=== PATIENT | female | born 1980 | race Caucasian/White ===

== ENCOUNTER 2025-05-07 12:34 | Outpatient (CLI) | payer BC, SELFPAY ==
--- OUTSIDE RECORDS SUMMARY | 2025-05-07 12:42 | XMS_ITS | Clinical Summary ---
Author Organization [facility] Address [address] [place] [address] Care Team Providers Care Public Health Training Assistant Name Role Phone Benson Jhaveri MD Primary Care Provider Allergies Active Allergy Reactions Criticality Noted Date Comments Amoxicillin Unknown 09/20/2017 Aspirin Stomach upset Low 09/20/2017 Sulfamethoxazole-Trimethop rim Unknown 09/20/2017 Tongue turned white and dried out Clavulanic Acid Unknown 09/20/2017 Ibuprofen Stomach upset Low 09/20/2017 Potassium Bicarb-Citric Acid Unknown 09/20/2017 Medications escitalopram (LEXAPRO) 20 mg tablet 06/25/2017 Active MEDROXYPROGESTER ONE 150 mg/mL injection 08/27/2017 Active omeprazole (PriLOSEC) 20 mg capsule 09/16/2017 Active predniSONE (DELTASONE) 10 mg tablet 06/14/2017 Active vit D3-vit T-gkminqpun-egqg [id number] kgtf-nhi-ka-mg tablet Take by mouth. Active Active Problems Problem Noted Date Diagnosed Date Morbid obesity with BMI of 40.0-44.9, adult 04/2018 Surgical History Surgery Date Site/Laterality Comments APPENDECTOMY Medical History Medical History Date Comments Gastric reflux Anxiety Depression IBS (irritable bowel syndrome) Family History Medical History Relation Name Comments Blood Clot Brother Alcohol abuse Neg Hx Arthritis Neg Hx Cancer Neg Hx Hypertension Neg Hx Lung disease Neg Hx Mental illness Neg Hx Relation Name Status Comments Brother Social History Tobacco Use Types Packs/Day Years Used Date Smoking Tobacco: Every Day Smokeless Tobacco: Current Alcohol Use Standard Drinks/Week Comments Yes 0 (1 standard drink = 0.6 oz pur e alcohol) Personal Safety Answer Date Recorded Getting School Help Needed Not on file 11/27 Comments Unknown Sex and Gender Information Value Date Recorded Sex Assigned at Not on file Legal Sex Female 9:50 AM DIRECTOR CHEMISTRY Gender Identity Not on file Sexual Orientation Not on file Obstetrics History Last Filed Vital Signs Vital Sign Reading Time Taken Comments Blood Pressure 154/75 09/20/2017 8:47 AM DIRECTOR CHEMISTRY Pulse 61 09/20/2017 8:47 AM DIRECTOR CHEMISTRY Temperature - - Respiratory Rate - - Oxygen Saturation - - Inhaled Oxygen Concentration - - Weight 115.7 kg (255 lb) 09/20/2017 8:47 AM DIRECTOR CHEMISTRY Height 167.6 cm (5' 6) 09/20/2017 8:47 AM DIRECTOR CHEMISTRY Body Mass Index 41.16 09/20/2017 8:47 AM DIRECTOR CHEMISTRY Plan of Treatment Not on file Insurance [employer] Care Teams Public Health Training Assistant Relationship Specialty Start Date End Date Benson Jhaveri MD PCP - General Family Medicine 09/10/17
--- OUTSIDE RECORDS SUMMARY | 2025-05-07 12:42 | XMS_ITS | Clinical Summary ---
Author Organization [facility] Address [address] [place] [address] Care Team Providers Care Director Of Federal Sales Name Role Phone Benson Jhaveri MD Primary Care Provider Allergies Active Allergy Reactions Criticality Noted Date Comments Amoxicillin Unknown 10/04/2018 Aspirin GI Upset Low 09/20/2017 Clavulanic Acid Unknown 10/04/2018 Ibuprofen GI Upset Low 09/20/2017 Penicillins Nausea and Vomiting Medium 10/04/2018 Potassium Bicarb-Citric Acid Unknown 09/20/2017 Potassium Bicarbonate Unknown 10/04/2018 Sulfamethoxazole-Trimet hoprim Unknown 09/20/2017 Tongue turned white and dried out Medications medroxyPROGESTE Michael injection Inject 1 mL (150 mg total) into the muscle every 3 (three) months. 4 09/21/2018 Active cetirizine 10 MG tablet Take 1 tablet (10 mg total) by mouth daily. 4 09/15/2018 Active escitalopram 20 MG tablet Take 1 tablet (20 mg total) by mouth daily. 09/15/2018 Active omeprazole 20 MG capsule Take 2 capsules (40 mg total) by mouth daily. 08/19/2018 Active acetaminophen 325 MG tablet Take 2 tablets (650 mg total) by mouth daily as needed. Active gabapentin (NEURONTIN) 600 MG tablet Take 1 tablet (600 mg total) by mouth 2 (two) times daily. 04/03/2024 Active HYDROcodone-kai taminophen (NORCO) 7.5-325 MG tablet Take 1 tablet by mouth. 05/11/2024 Active LORazepam (ATIVAN) 0.5 MG tablet Take 1 tablet (0.5 mg total) by mouth. Active Active Problems Problem Noted Date Diagnosed Date Bicipital tendinitis of right shoulder 1 Carpal tunnel syndrome on left 04/18/2019 Carpal tunnel syndrome on right 02/15/2019 Carbuncle of breast 10/04/2018 Overview (10/04/2018): Under right breast Hemorrhoid 10/04/2018 IBS (irritable bowel syndrome) 10/04/2018 Sleep apnea 10/04/2018 Anxiety and depression 10/04/2018 Obesity 10/04/2018 Allergic rhinitis 10/04/2018 Pilonidal cyst 10/04/2018 Perirectal abscess Anal fissure GERD (gastroesophageal reflux disease) Nicotine dependence, cigarettes, uncomplicated Family History Medical History Relation Comments COPD Father Cancer Father FH OF BREAST CAN CER Diabetes Father Hypertension Maternal Grandmother Cancer Mother FH OF COLON CANC ER Hypertension Mother OCD Mother Anxiety Sister Relation Status Comments Father Maternal Grandmother Mother Sister Social History Tobacco Use Types Packs/Day Years Used Date Smoking Tobacco: Every Day Cigarettes Smokeless Tobacco: Never Tobacco Cessation:Ready to Q uit: Not Asked; Counseling Given: Not Answered Alcohol Use Standard Drinks/Week Comments No 0 (1 standard drink = 0.6 oz pur e alcohol) NO USE IN 1 YEAR AUDIT-C Answer Date Recorded Frequency of Alcohol Consumption Monthly or less 10/05/2018 Average Number of Drinks Not on file 019 Frequency of Binge Drinking Not on file 09/14 Comments No Sex and Gender Information Value Date Recorded Sex Assigned at Female 10/05/2018 12:41 PM TOWER DIRECTOR Legal Sex Female 9:10 PM TOWER DIRECTOR Gender Identity Female 10/05/2018 12:41 PM TOWER DIRECTOR Sexual Orientation Not on file Last Filed Vital Signs Vital Sign Reading Time Taken Comments Blood Pressure 147/82 05/13/2024 8:06 PM CDT Pulse 78 05/13/2024 8:06 PM CDT Temperature 35.9 C (96.6 F) 05/13/2024 8:06 PM CDT Respiratory Rate 16 05/13/2024 8:06 PM CDT Oxygen Saturation 100% 05/13/2024 8:06 PM CDT Inhaled Oxygen Concentration - - Weight 141.5 kg (312 lb) 05/13/2024 8:06 PM CDT Height 170.2 cm (5' 7) 05/13/2024 8:06 PM CDT Body Mass Index 48.87 05/13/2024 8:06 PM CDT Plan of Treatment Health Maintenance Due Date Last Done Comments Cervical Cancer Screening Pa p Smear (Age 30 to 64) Every 3 Years 1982 Annual Physical 1985 Hepatitis C 2000 DTaP, Tdap and Td Vaccines ( 1 - Tdap) 2001 Hepatitis B Vaccines (1 of 3 - 19+ 3-dose series) 2001 Pneumococcal Vaccine: Pediatrics (0 to 5 Years) and At-Risk Patients (6 to 49 Years) (1 of 2 - PCV) 2001 HPV Vaccines (1 - 3-dose SCD M series) 2009 Cervical Cancer Screening Pa p with HPV Testing (Age 30 to 64) Every 5 Years 2012 Cervical Cancer Screening wi th HPV 2012 Mammogram Screening 2022 COVID-19 Vaccine ( - 2023-2 5 season) 2024 09/11/2021, 02/23/2021, 02/02/2021 Meningococcal B Vaccine Aged Out No l onger eligible based on patient's age to complete this topic Meningococcal Vaccine Aged Out No sumanth mode eligible based on patient's age to complete this topic RSV Immunizations Under 20 Months Aged Out No longer eligible b ased on patient's age to complete this topic Insurance [facility] Care Teams Director Of Federal Sales Relationship Specialty Start Date End Date Benson Jhaveri MD PCP - General FAMILY PRACTICE 10/04/18
--- OUTSIDE RECORDS SUMMARY | 2025-05-07 12:42 | XMS_ITS | Encounter Summary ---
Author Organization [facility] Address [address] [place] [address] Care Team Providers Care Family Law Paralegal Name Role Phone Benson Jhaveri MD Primary Care Provider [phone]- [phone] Encounter Details Date Type Department Care Team (Late st Contact Info) Description 02/18/2019 Abstract SFL CONVERSION [address] [place] [address] , Generic Conversion, Social History Tobacco Use Types Packs/Day Years Used Date Smoking Tobacco: Every Day Cigarettes Smokeless Tobacco: Never Alcohol Use Standard Drinks/Week Comments No 0 (1 standard drink = 0.6 oz pur e alcohol) NO USE IN 1 YEAR AUDIT-C Answer Date Recorded Frequency of Alcohol Consumption Monthly or less 10/05/2018 Average Number of Drinks Not on file 019 Frequency of Binge Drinking Not on file 09/14 Comments Unknown Sex and Gender Information Value Date Recorded Sex Assigned at Female 10/05/2018 12:41 PM COMBAT INFORMATION CENTER OFFICER Legal Sex Female 9:10 PM COMBAT INFORMATION CENTER OFFICER Gender Identity Female 10/05/2018 12:41 PM COMBAT INFORMATION CENTER OFFICER Sexual Orientation Not on file documented as of this encounter Plan of Treatment Not on file documented as of this encounter Visit Diagnoses Not on filedocumented in this encounter Additional Health Concerns Infection Onset Date Last Indicated Resolved Time COVID-19 Rule Out 11/16/2022 11/16/2022 11/16/2022 8:18 AM COMBAT INFORMATION CENTER OFFICER COVID-19 Rule Out 08/29/2023 08/29/2023 08/29/2023 1:08 PM COMBAT INFORMATION CENTER OFFICER documented as of this encounter Care Teams Family Law Paralegal Relationship Specialty Start Date End Date Benson Jhaveri MD PCP - General FAMILY PRACTICE 10/04/18 documented as of this encounter
--- OUTSIDE RECORDS SUMMARY | 2025-05-07 12:42 | XMS_ITS | Clinical Summary ---
Author Organization [facility] Address [address] [place] [address] Phone Care Team Providers Care Entomology Professor Name Role Phone Benson Jhaveri MD Primary Care Provider [phone] Juno Schultz MD Unavailable [phone] Allergies Active Allergy Reactions Criticality Noted Date Comments Amoxicillin Unknown 02/16/2024 Sulfamethoxazole-Trimethoprim Unknown 2023 Ibuprofen Unknown 02/16/2024 Penicillins Unknown 02/16/2024 Potassium Bicarbonate Unknown 02/16/2024 Sulfa Antibiotics Unknown 02/16/2024 Medications gabapentin (NEURONTIN) 300 MG Capsule 600 mg. 1 tablet nightly 0 4 Active acetaminophen (TYLENOL) 325 MG Tablet Take 325 mg by mouth every 4 hours as needed. Active escitalopram (Lexapro) 20 MG Tablet Take 20 mg by mouth daily. Active LORazepam (ATIVAN) 0.5 MG Tablet Take 0.5 mg by mouth every 6 hours as needed. Active medroxyPROGEST ERone (DEPO-PROVERA) 150 MG/ML Suspension by Intramuscular route once. Hazardous: Medication requires special safe handling and disposal. Active omeprazole (PriLOSEC) 20 MG CAPSULE DELAYED RELEASE Take 40 mg by mouth daily. Active cetirizine (ZyrTEC Allergy) 10 MG Tablet Take 10 mg by mouth daily. Active gabapentin (NEURONTIN) 100 MG Capsule Take 1 Capsule by mouth in the morning and at bedtime. 60 Capsule 3 4 Active Family History Medical History Relation Name Comments Chronic Obstructive Pulmonary Disease Father Hypertension Mother Mental Disorder, Other Mother Relation Name Status Comments Father Alive Mother Alive Social History Tobacco Use Types Packs/Day Years Used Date Smoking Tobacco: Every Day Cigarettes 1 18.6 Started: 09/13/2006 Smokeless Tobacco: Never Alcohol Use Standard Drinks/Week Comments Never 0 (1 standard drink = 0.6 oz pur e alcohol) Comments Unknown Sex and Gender Information Value Date Recorded Sex Assigned at Not on file Legal Sex Female 10:42 AM CDT Gender Identity Not on file Sexual Orientation Not on file Last Filed Vital Signs Vital Sign Reading Time Taken Comments Blood Pressure 140/90 07/13/2024 10:25 AM CDT Pulse 85 07/13/2024 10:25 AM CDT Temperature 36.7 C (98.1 F) 07/13/2024 10:25 AM CDT Respiratory Rate 18 07/13/2024 10:25 AM CDT Oxygen Saturation 97% 07/13/2024 10:25 AM CDT Inhaled Oxygen Concentration - - Weight 140.2 kg (309 lb) 07/13/2024 10:25 AM CDT per patient Height 170.2 cm (5' 7) 07/13/2024 10:25 AM CDT Body Mass Index 48.4 07/13/2024 10:25 AM CDT Plan of Treatment Health Maintenance Due Date Last Done Comments Hepatitis C Virus (HCV) Screening 1982 Mammogram 1982 TdaP Immunization 1982 Hepatitis B Immunization (1 of 3 - 19+ 3-dose series) 2001 Pneumococcal Immunization Combined (1 of 2 - PCV) 2001 Pap Smear 2003 Human Papillomavirus (HPV) Immunization (1 - 3-dose SCDM series) 2009 Cervical Cancer Screening (CCS) 2012 HPV/Cotest 2012 Discussion re Starting/Frequency of Mammograms 2022 SARS-COV-2 Immunization ( season) 2024 09/11/2021, 02/23/2021, 02/02/2021 Influenza Immunization (#1) 2025 Respiratory Syncytial Virus (RSV) Immunization (Adult) (1 - 1-dose 75+ series) 2057 Meningococcal Immunization (ACWY) Aged Out No longer eligible b ased on patient's age to complete this topic Rotavirus Immunization Aged Out No lo nger eligible based on patient's age to complete this topic Insurance [facility] Care Teams Entomology Professor Relationship Specialty Start Date End Date Benson Jhaveri MD [address] [place] [address] PCP - General Family Medicine 02/09/24 Juno Schultz MD [address] [place] [address] Consulting Physician Neurology 07/03/24
--- NOTE | 2025-05-07 12:44 | ECG_ITS ---
Test Date: 2025-05-07 12:51:55 Measurements Intervals [facility] Rate: 65 P: 37 OK: 197 QRS: 29 QRSD: 90 T: -11 QT: 375 QTc: 391 Interpretive Statements SINUS RHYTHM LOW QRS VOLTAGE IN PRECORDIAL LEADS CONSIDER INFERIOR INFARCT, AGE INDETERMINATE ST-T WAVE ABNORMALITY IN ANTERIOR LEADS- CONSIDER ISCHEMIA BASELINE ARTIFACT- I, II, AVR ABNORMAL ECG No previous ECG available for comparison Electronically Signed On 05-07-2025 13:00:56 CDT by Geremias Hansen D.O.
== END 2025-05-07 12:35 | disposition home or self-care (01) ==
LOC: ANHSURGERY 12:38
PROVIDERS: PCP Family Medicine; Visit Provider Obstetrics & Gynecology
DX: R94.31 Abnormal electrocardiogram [ECG] [EKG] (principal); F17.210 Nicotine dependence, cigarettes, uncomplicated
CPT/HCPCS: 93005

== ENCOUNTER 2025-05-16 01:03 | Day surgery (SDC) | payer BC, SELFPAY ==
[2025-05-03 12:07] VITALS: BMI 46.6
--- NOTE | 2025-05-03 12:36 | PC.NURSE ---
Report to the Outpatient Waiting Room, entrance under the green pavilion located off [facility], at time ____11:00AM___ on date ___05/16/25____. Planned Procedure Time: ___1:00PM .? Time changes happen often and if your time is changed the preop area will call you the afternoon before. - You and your visitor will be asked to self-screen and do not enter if you have any COVID symptoms. Please call surgeon if you need to reschedule. - A mask is optional within the hospital at this time. Patients may have clear liquids (water, carbonated beverages, clear teas, apple juice) until 3 hours prior to surgery (10:00AM) with a maximum of 20 ounces. - No food from midnight until time of surgery and no smoking, or chewing tobacco (or any form of nicotine). No chewing gum, candy or mints. Take only the following medications with a SIP of water on the morning of surgery: ____GABAPENTIN MAY TAKE LORAZEPAM NEEDED DO NOT STOP ANY OF YOUR OTHER PRESCRIPTION MEDICATIONS PRIOR TO SURGERY EXCEPT THE FOLLOWING Hold all vitamins and supplements for 3 days per anesthesiologist. Medications to discontinue per physician NONE Date to take last dose Please no make-up, nail italian, hairspray, perfume, deodorant, or body powder the day of surgery.? No jewelry (including any body piercings) or valuables the day of surgery, leave them at home.? Please take a shower or bath the night before, or the morning of, surgery with an antibacterial soap.? Wear comfortable, loose fitting clothing.? Children are encouraged to wear pajamas. - Jewelry must be removed prior to entering the operating room.? Rings and piercings that are not removed may be cut off. - The hospital will not accept responsibility for valuables.? - Please leave all valuables, including medications, at home the day of surgery. If you are going home after surgery, a licensed regional dedicated truck driver must drive you home.? - NO public transportation without another adult if you receive anesthesia. - We recommend that an adult stay with you for 24 hours following discharge. - We also recommend that you do not drive, make important decision, drink alcoholic beverages, or take any drugs that were not prescribed by your health care provider for at least 24 hours after your discharge time. For Pediatric surgeries, we recommend two adults accompany the child home. Follow any additional instructions given to you from your surgeon. Telephone instructions given to ____PATIENT and asked if any additional questions and then verbalized understanding. Patient advised to call surgeon office or pre surgery nurse liaison [phone] if any additional questions.
[2025-05-16] VITALS (11 sets, daily range): BP systolic 119–152; BP diastolic 67–93; PULSE 61–88; RESP 10–22; TEMP 36.6–36.7; O2SAT 90–100
--- OUTSIDE RECORDS SUMMARY | 2025-05-16 01:06 | XMS_ITS | Encounter Summary ---
Author Organization [facility] Address [address] [place] [address] Care Team Providers Care Manager Personnel Selection Name Role Phone Benson Jhaveri MD Primary Care Provider [phone] Encounter Details Date Type Department Care Team (Late st Contact Info) Description 02/18/2019 Abstract SFL CONVERSION [address] [place] [address] , Generic Conversion, Social History Tobacco Use [...] Sex Assigned at Female 10/05/2018 12:41 PM GEOTECHNICAL ENGINEER Legal Sex Female 9:10 PM GEOTECHNICAL ENGINEER Gender Identity Female 10/05/2018 12:41 PM GEOTECHNICAL ENGINEER Sexual Orientation Not on file documented as of this encounter Plan of Treatment Not on file documented as of this encounter Visit Diagnoses Not on filedocumented in this encounter Additional Health Concerns Infection Onset Date Last Indicated Resolved Time COVID-19 Rule Out 11/16/2022 11/16/2022 11/16/2022 8:18 AM GEOTECHNICAL ENGINEER COVID-19 Rule Out 08/29/2023 08/29/2023 08/29/2023 1:08 PM GEOTECHNICAL ENGINEER documented as of this encounter Care Teams Manager Personnel Selection Relationship Specialty Start Date End Date Benson Jhaveri MD PCP - General FAMILY PRACTICE 10/04/18 documented as of this encounter
--- OUTSIDE RECORDS SUMMARY | 2025-05-16 01:06 | XMS_ITS | Clinical Summary ---
Author Organization [facility] Building [facility] Address [address] [place] [address] Care Team Providers Care Systems Lead Name Role Phone Benson Jhaveri MD Primary [...] 10 mg tablet 06/14/2017 Active vit D3-vit F-xkceorawd-yoko [id number] wspv-had-ke-mg tablet Take by mouth. Active Active Problems [...] on file Legal Sex Female 9:50 AM TERMITE EXTERMINATOR HELPER Gender Identity Not on file Sexual Orientation Not on file Obstetrics History Last Filed Vital Signs Vital Sign Reading Time Taken Comments Blood Pressure 154/75 09/20/2017 8:47 AM TERMITE EXTERMINATOR HELPER Pulse 61 09/20/2017 8:47 AM TERMITE EXTERMINATOR HELPER Temperature - - Respiratory Rate - - Oxygen Saturation - - Inhaled Oxygen Concentration - - Weight 115.7 kg (255 lb) 09/20/2017 8:47 AM TERMITE EXTERMINATOR HELPER Height 167.6 cm (5' 6) 09/20/2017 8:47 AM TERMITE EXTERMINATOR HELPER Body Mass Index 41.16 09/20/2017 8:47 AM TERMITE EXTERMINATOR HELPER Plan of Treatment Not on file Insurance [employer] [facility] H[facility]PPO Address: [facility] [id number] [place] [address] Care Teams Systems Lead Relationship Specialty Start Date End Date Benson Jhaveri MD PCP - General Family Medicine 09/10/17
--- OUTSIDE RECORDS SUMMARY | 2025-05-16 01:06 | XMS_ITS | Clinical Summary ---
Author Organization [facility] Address [address] [place] [address] Phone Care Team Providers Care Brake Repairer Railroad Name Role Phone Benson Jhaveri MD Primary Care Provider [phone] Juno Schultz MD Unavailable [phone] Allergies Active Allergy Reactions Criticality Noted Date [...] Date Smoking Tobacco: Every Day Cigarettes 1 18.7 Started: 09/13/2006 Smokeless Tobacco: Never Alcohol Use [...] patient's age to complete this topic Insurance [facility] Care Teams Brake Repairer Railroad Relationship Specialty Start Date End Date Benson Jhaveri MD [address] [place] [address] PCP - General Family Medicine 02/09/24 Juno Schultz MD [address] [place] [address] Consulting Physician Neurology 07/03/24
--- NOTE | 2025-05-16 09:07 | PM.IMHP ---
H&P: HPI History of Present Illness Date/Time: 05/16/25 09:07 Chief Complaint: Sterilization Narrative: 44 y/o nulligravida interested in permanent sterilization. She does not desire childbearing. She had gonadotropins drawn that are not in the menopausal range. Review of Systems Review of Systems: All systems reviewed & are unremarkable except as noted in HPI and below PMFSH Past Medical History Medical History Fibromyalgia Exogenous obesity Sleep related eating disorder Sleep walking Obstructive sleep apnea syndrome IBS (irritable bowel syndrome) GERD (gastroesophageal reflux disease) Cancer Anxiety Allergies Migraine Decreased hearing of right ear Surgical History Surgical History Hx of appendectomy H/O LEEP Family History Family History Father Depression Anxiety Alcoholism Mother Anxiety Depression Heart disease Hypertension Sibling Anxiety Depression Thyroid disorder Grandparent Breast cancer Carcinoma of colon Social History Social History Social History: Caffeine- soda Smoking packs per day: 1.5 Smoking cigarettes per day: 30.0 Years smoked: 17 Smoking pack-years: 25.50 Smoking status: Current every day smoker Tobacco type: cigarettes Alcohol intake: never Substance use: never Substance use type: does not use Do You Feel Safe in your Home?: Yes Lack of Transportation: No Lack of Food: Never True Current Housing: I Have Housing Concerned About Future Housing: No Difficulty Paying Gas/Electric Bills: No Difficulty Paying for Meds: No Currently Unemployed: No Education: High School Diploma/GED Difficulty w/ Childcare or Family Care: No Living arrangements: with family Additional living arrangements comments: [facility] Occupation/Education: unemployed Gender identity (if verbalized by the patient): Female Spiritual care concerns: No Agree to blood products: Yes Meds Home Medications and Allergies Home Medications ?Medication ?Instructions ?Recorded ?Confirmed ?Type cetirizine 10 mg tablet (Zyrtec) 10 mg PO DAILY PRN allergy symptoms 05/11/23 05/03/25 History escitalopram oxalate 20 mg tablet 20 mg PO DAILY 05/11/23 05/03/25 History lorazepam 0.5 mg tablet 0.5 mg PO DAILY PRN anxiety 05/11/23 05/03/25 History gabapentin 800 mg tablet 800 mg PO TID 05/03/25 05/03/25 History omeprazole 40 mg capsule,delayed 40 mg PO QAM 05/03/25 05/03/25 History release Allergies Allergy/AdvReac Type Severity Reaction Status Date / Time morphine AdvReac HEAD PAIN Verified 05/03/25 12:03 ondansetron (From Zofran) AdvReac DIZZINESS, Verified 05/03/25 12:03 DAMPENED MENTAL ACUITY Exam Const: Orientation/consciousness: patient oriented x3 Other: Well-developed, well-nourished female in no acute distress. Neck: Thyroid: thyroid normal Lymphatic: no lymphadenopathy noted (in neck, axilla or inguinal nodes) Resp: Effort & Inspection: normal respiratory effort Auscultation: clear to auscultation bilaterally Cardio: Rate: regular rate Rhythm: regular rhythm Heart sounds: S1 normal heart sound present and S2 normal heart sound present GI: Other: ABD: Soft, nontender, nondistended. No guarding or rebound tenderness. No hepatosplenomegaly. : General: Yes no CVA tenderness Other: External genitalia: normal female hair distribution, without lesion. Urethral meatus: no lesion, non prolapsed. Bladder: no mass, nontender Vagina: well-estrogenized, without lesion or discharge. No cystocele or rectocele. Cervix: no lesion or discharge. Uterus: small, anteverted, freely mobile, nontender Adnexa: no mass or tenderness. Anus/perineum: no lesions, nontender Back/Spine/Pelvis: Back: no CVA tenderness Skin: General skin exam: normal color and no rashes or lesions noted Neuro: General: patient oriented x3 Extrem: Other: Extremities: nontender with no edema Psych: Mental Status: mental status grossly normal Affect: normal affect Assessment and Plan Assessment and plan (1) Unwanted fertility: Code(s): Z30.09 - Encounter for other general counseling and advice on contraception Status: Acute Assessment and Plan: A: Desired sterility. P: She understands there are temporary methods of contraception available to her. She understands that there are nonsurgical options as well as surgical options. She understands that tubal sterilization will render her permanently sterile. She understands that there is a failure rate associated with tubal sterilization, as well as an inherent ectopic gestation risk. Furthermore, she understands risks of surgery to include risks of anesthesia, risks of pain, infection, bleeding, blood products, thromboembolic phenomena and damage to adjacent structures such as bowel, bladder, ureters, blood vessels and nerves. She understands all these risks and elects to undergo laparoscopic bilateral salpingectomies.
[2025-05-16] MEDS: ACETAMINOPHEN 500 MG TABLET 1000 MG PO (10:46)
--- NOTE | 2025-05-16 10:48 | WPDANESEPPF ---
Anes - Initial Pre Proc Eval Procedure: Operation Date: 05/16/25 11:00 Proposed Procedures p Laparoscopic Bilateral Salpingectomy - Mike Fields MD Date/Time: 05/16/25 10:48 Surgeon: Mike Fields MD Pre Op Diagnosis: Desires Sterilization Patient Data Age: 44 Gender: F Height: 1.7 m Weight: 133.6 kg Last Vital Signs Temp 36.6 C 05/16/25 10:18 Pulse 88 05/16/25 10:18 Resp 22 H 05/16/25 10:18 BP 139/93 H 05/16/25 10:18 Pulse Ox 97 05/16/25 10:18 O2 Del Method Room Air 05/16/25 10:18 Allergies Allergy/AdvReac Type Severity Reaction Status Date / Time morphine AdvReac HEAD PAIN Verified 05/16/25 10:20 ondansetron (From Zofran) AdvReac DIZZINESS, Verified 05/16/25 10:20 DAMPENED MENTAL ACUITY Home Medications ?Medication ?Instructions ?Recorded ?Confirmed ?Type cetirizine 10 mg tablet (Zyrtec) 10 mg PO DAILY PRN allergy symptoms 05/11/23 05/16/25 History escitalopram oxalate 20 mg tablet 20 mg PO DAILY 05/11/23 05/16/25 History lorazepam 0.5 mg tablet 0.5 mg PO DAILY PRN anxiety 05/11/23 05/03/25 History gabapentin 800 mg tablet 800 mg PO TID 05/03/25 05/16/25 History omeprazole 40 mg capsule,delayed 40 mg PO QAM 05/03/25 05/16/25 History release Patient hx anesthesia problems: none Family hx anesthesia problems: none Results Review: All pre-operative results and documents have been reviewed as part of the pre-operative evaluation. [facility] Past Medical History Medical History Fibromyalgia Exogenous obesity Sleep related eating disorder Sleep walking Obstructive sleep apnea syndrome IBS (irritable bowel syndrome) GERD (gastroesophageal reflux disease) Cancer Anxiety Allergies Migraine Decreased hearing of right ear Surgical History Surgical History Hx of appendectomy H/O LEEP Family History Family History Father Depression Anxiety Alcoholism Mother Anxiety Depression Heart disease Hypertension Sibling Anxiety Depression Thyroid disorder Grandparent Breast cancer Carcinoma of colon Social History Social History Social History: Caffeine- soda Smoking packs per day: 1.5 Smoking cigarettes per day: 30.0 Years smoked: 17 Smoking pack-years: 25.50 Smoking status: Current every day smoker Tobacco type: cigarettes Alcohol intake: never Substance use: never Substance use type: does not use Do You Feel Safe in your Home?: Yes Lack of Transportation: No Lack of Food: Never True Current Housing: I Have Housing Concerned About Future Housing: No Difficulty Paying Gas/Electric Bills: No Difficulty Paying for Meds: No Currently Unemployed: No Education: High School Diploma/GED Difficulty w/ Childcare or Family Care: No Living arrangements: with family Additional living arrangements comments: [facility] Occupation/Education: unemployed Gender identity (if verbalized by the patient): Female Spiritual care concerns: No Agree to blood products: Yes Anes - Eval Final PreProcedure Day of Procedure 05/16/25 10:48 Patient weight: morbidly obese Heart: regular rate and rhythm Lungs: clear to auscultation Airway: Mallampati scale class III Neurological: alert and oriented Last oral intake: >/= 8 hours ASA classification: III Emergent: no Anesthetic plan: proceed Anesthesia type and monitoring: general ETT and standard monitoring Results Review: All pre-operative results and documents have been reviewed as part of the pre-operative evaluation. Informed Consent: The patient's anesthetic plan and its attendant risks and benefits were discussed with the patient/family/POA. Questions were solicited and answers provided to the satisfaction of the patient/family/POA.
[2025-05-16] MEDS: LACTATED RINGERS 1,000 ML 30 ML IV CONT ×2 (10:50→12:01)
[2025-05-16] MEDS: KETOROLAC 15 MG/ML VIAL (*BKC) IV PUSH (10:52)
--- NOTE | 2025-05-16 11:11 | WPDHPUPDATE1 ---
History and Physical Update Update Date/Time: 05/16/25 11:11 History and Physical has been reviewed, including an updated exam of the patient. There are NO changes in the patient's condition. Risks, benefits, and alternatives have been discussed and questions answered. Patient agrees to proceed with procedure.
--- NOTE | 2025-05-16 11:57 | P.OP_ITS ---
Procedure Note - Detailed Date of Procedure 05/16/25 Pre-op Diagnosis Desires Sterilization Post-op Diagnosis Same Procedure Performed Laparoscopic bilateral salpingectomies Surgeon Mike Fields MD Anesthesia General Findings Normal-appearing uterus, bilateral tubes and ovaries, anterior and posterior cul de sac, bilateral round and uterosacral ligaments. Description of Procedure The patient was taken to the operating room where general endotracheal anest hesia was administered. She was prepared and draped in the usual sterile fashion in dorsal lithotomy position. The bladder was drained with a red rubber catheter. A sterile speculum was placed into the vagina. The anterior lip of the cervix was grasped with a single-tooth tenaculum. The acorn uterine manipulator was placed. The speculum was withdrawn. Gloves were changed and attention was turned the abdomen. An infraumbilical skin incision was made with a scalpel. The abdomen was tented and a 5mm bladeless trocar was advanced under direct laparoscopic visualization. Pneumoperitoneum was administered using carbon dioxide gas. A survey of the pelvis and abdomen revealed the findings noted above. Additional 5 mm incisions were made in the midline above the pubic symphysis, and in the left lower quadrant, and 5 mm ports were advanced using bladeless trocars under direct laparoscopic visualization. The Fallopian tube on the right side was grasped and elevated and dissected off the ovary using the Ligasure. The tube was then amputated from the uterus and passed off to be sent to pathology. The left tube was similarly dissected free and excised. Hemostasis was excellent. The ports were withdrawn. The gas was allowed to escape. The skin incisions were reapproximated using interrupted subcuticular sutures of 4 0 Vicryl. Dermaflex was applied externally. The vaginal instrumentation was withdrawn and hemostasis was excellent here as well. Sponge, lap, needle and instrument counts were correct. The patient was awakened and taken to recovery room in stable condition. I was present and scrubbed through the entire procedure. Estimated Blood Loss 5 Drains No Packing No Pathology Yes (Bilateral Fallopian tubes) Complications None Condition Stable Disposition PACU [facility] Billing Surgery - Charge Forward: Surgery Billing
--- NOTE | 2025-05-16 12:04 | S_PTH ---
PATIENT: Nimo Webb LOC: [facility] U#:[id number] AGE/SX: 44/F ROOM: RE05/16/[address]: Mike Fields MD : 1980 BED: DIS: 05/16/2025 SPEC #: [id number] RECD: 05/16/25 13:18 STATUS: HALLIE RE #: [id number] ALLIE: 05/16/25 12:[address]: Mike Fields DEPT: [facility] Surgical RECD BY: Phoebe Benitez ENTERED: 05/16/25 13:18 SP TYPE: Surgical OTHR DR: Benson JhaveriMD Tissues: A - Fallopian Tube Bilateral Procedures: Gross and Microscopic Level 2 Hematoxylin and Eosin Stain
[2025-05-16] MEDS: fentaNYL CITRATE INJ (*CRX) 100 MCG/2 ML VIAL 25 MCG IV PUSH ×4 (12:22→12:38)
== END 2025-05-16 14:50 | disposition home or self-care (01) ==
PROVIDERS: PCP Family Medicine; Visit Provider Obstetrics & Gynecology
PROC: (CPT 49320; principal; 2025-05-16 11:00)
DX: Z30.2 Encounter for sterilization (principal); F17.210 Nicotine dependence, cigarettes, uncomplicated; E66.01 Morbid (severe) obesity due to excess calories; Z68.42 Body mass index [BMI] 45.0-49.9, adult
CPT/HCPCS: 58661; 88302; A9270; J1100; J1885; J2003; J2250; J2405; J2704; J3010; J7120